=== PATIENT | male | born 1970 | race Caucasian/White ===

== ENCOUNTER 2021-05-03 13:08 | Outpatient (REF) | payer OTHER, SELFPAY ==
[2021-05-03 15:03] LABS: Alanine Aminotransferase 20 U/L (0-40); Albumin Level 4.4 g/dL (3.5-5.0); Alkaline Phosphatase 94 U/L (39-117); Anion Gap 14 (12-20); Aspartate Amino Transferase 18 U/L (5-37); Bilirubin Total 0.6 mg/dL (0.0-1.0); Blood Urea Nitrogen 12 mg/dL (9-16); C Reactive Protein 0.18 mg/dL (< or = 0.50); Calcium 9.9 mg/dL (8.4-10.2); Carbon Dioxide 26 mmol/L (22-29); Chloride 104 mmol/L (96-108); Estimated Glomerular Filt Rate > 60; Glucose Random 103 mg/dL (60-115); Potassium 4.3 mmol/L (3.3-5.1); Sodium 140 mmol/L (135-145); Total Protein 7.4 g/dL (6.5-8.0)
[2021-05-03 15:11] LABS: Rheumatoid Factor < 15.0 IU/mL (<15.0)
[2021-05-03 15:23] LABS: Thyroid Stimulating Hormone 0.85 uIU/mL (0.32-4.0)
[2021-05-04 10:26] LABS: Complement C3 81 mg/dL (82-185)
[2021-05-04 15:22] LABS: PTT (LAC) Screen 36 sec (< OR = 40)
[2021-05-05 03:31] LABS: Thyroglobulin Antibodies <1 IU/mL (< or = 1)
[2021-05-05 10:02] LABS: Anti DNA DS Antibody 13 IU/mL; Antibody to SS-A Antigen <1.0 NEG AI (<1.0 NEG); Antibody to SS-B Antigen <1.0 NEG AI (<1.0 NEG); SM/Ribonucleoprotein Ab <1.0 NEG AI (<1.0 NEG); Smith Protein <1.0 NEG AI (<1.0 NEG); Thyroid Peroxidase Antibodies 1 IU/mL (<9)
== END 2021-05-03 13:09 | disposition home or self-care (01) ==
LOC: HO.LAB 13:08
PROVIDERS: PCP Internal Medicine; Visit Provider Student in an Organized Health Care Education/Training Program
DX: R76.8 Other specified abnormal immunological findings in serum (principal)
CPT/HCPCS: 36415; 80053; 84443; 85597; 85613; 85730; 86140; 86160; 86225; 86235; 86376; 86431; 86800; 99202

== ENCOUNTER 2021-05-23 11:45 | Outpatient (REF) | payer OTHER, SELFPAY ==
[2021-05-23 12:53] LABS: MANUAL DIFF FLAG NO
[2021-05-23 13:00] LABS: Basophils Absolute Auto 0.1 X10*3/uL (0.0-0.2); Basophils Percent Auto 0.8 % (0-2); Eosinophils Absolute Auto 0.1 X10*3/uL (0.0-0.4); Eosinophils Percent Auto 1.4 % (0-4); Hematocrit 44.9 % (42-52); Hemoglobin 14.9 g/dl (14.0-18.0); Imm Gran Abs Auto 0.01 X10*3/uL (0.00-0.03); Imm Gran Pct Auto 0.2 % (0.0-0.4); Lymphocytes Absolute Auto 2.5 X10*3/uL (1.2-4.9); Lymphocytes Percent Auto 37.8 % (20-40); Mean Corpuscular HGB Conc 33.2 g/dl (31.0-36.0); Mean Corpuscular Hemoglobin 29.6 pg (27.0-33.0); Mean Corpuscular Volume 89.1 fL (80-98); Mean Platelet Volume 10.9 fL (9.4-12.4); Monocytes Absolute Auto 0.6 X10*3/uL (0.1-1.2); Monocytes Percent Auto 8.8 % (2-11); Neutrophils Absolute Auto 3.4 X10*3/uL (2.0-8.3); Platelet Count 211 X10*3/uL (160-400); Red Blood Count 5.04 X10*6/uL (4.60-5.80); Red Cell Distribution Width 12.7 % (11.0-16.0); White Blood Count 6.6 X10*3/uL (4.8-10.8)
[2021-05-23 13:05] LABS: Glucose Urine UA NEG (NEG); Leukocyte Esterase Urine NEG (NEG); Nitrite Urine NEG (NEG); Specific Gravity - Urine 1.015 (1.005-1.025); Urine Blood NEG (NEG); Urine Ketones NEG (NEG); Urine Protein NEG (NEG-TRACE)
[2021-05-23 13:09] LABS: Appearance Urine CLEAR; Color Urine YELLOW
[2021-05-23 13:51] LABS: Erythrocyte Sedimentation Rate 2 MM/HR (0-15)
[2021-05-23 13:55] LABS: Amorphous Sediment Urine TRACE /LPF; RBC Urine 0 /HPF (0); WBC Urine 0 /HPF (0-4)
[2021-05-26 13:11] LABS: Anti Nuclear Antibody Screen NEGATIVE (NEGATIVE)
[2021-05-27 17:27] LABS: Cyclic Citrullinated Peptide <16 UNITS
== END 2021-05-23 11:46 | disposition home or self-care (01) ==
LOC: HO.LAB 11:45
PROVIDERS: PCP Internal Medicine; Visit Provider Student in an Organized Health Care Education/Training Program
DX: R76.8 Other specified abnormal immunological findings in serum (principal)
CPT/HCPCS: 36415; 81001; 85025; 85652; 86038; 86039; 86200

== ENCOUNTER → 2021-05-26 12:23 | Outpatient (BNVA) | payer OTHER, SELFPAY | PROVIDERS: PCP Internal Medicine; Visit Provider Student in an Organized Health Care Education/Training Program | DX: R76.8 Other specified abnormal immunological findings in serum (principal) | CPT/HCPCS: 99212 ==

== ENCOUNTER 2021-08-28 13:07 | Emergency (ER) | payer OTHER, SELFPAY | END 2021-08-28 19:56 | disposition left against medical advice (07) | PROVIDERS: Emergency Provider Emergency Medicine; PCP Internal Medicine | DX: J00 Acute nasopharyngitis [common cold] (principal) ==

== ENCOUNTER 2021-09-30 16:33 | Emergency (ER) | payer OTHER, SELFPAY ==
[2021-09-30 16:56] VITALS: BP 142/94; PULSE 98; RESP 18; TEMP 36.8; O2SAT 99; BMI 29.9
--- NOTE | 2021-09-30 18:39 | ED.GENADULT ---
HPI - General Adult General Chief complaint: General Medical Stated complaint: chest pressure Time Seen by Provider: 09/30/21 18:39 Source: patient Mode of arrival: ambulatory Limitations: no limitations History of Present Illness HPI narrative: Patient not vaccinated against COVID feel headache body aches slight cough for last 2 3 days patient was tested positive today for COVID patient is saturating 99% at room air Related Data Home Medications Medication Instructions Recorded Confirmed losartan 50 mg tablet 50 mg PO DAILY 07/20/20 05/26/21 mirtazapine 15 mg tablet 15 mg PO BEDTIME 07/20/20 05/26/21 metformin 500 mg tablet 1 tab PO BID 08/22/20 05/26/21 Allergies Allergy/AdvReac Type Severity Reaction Status Date / Time No Known Allergies [NKA] Allergy Mild NOT Verified 09/30/21 18:31 APPLICABLE Review of Systems Review of Systems: Yes all other systems are reviewed and are negative [facility] Past Medical History Medical History Anxiety Depression Diabetes HTN (hypertension) Surgical History Lipoma of neck Family History Family History Father No problems noted. Mother No problems noted. Social History Social History Household Members: Family Alcohol intake: former Patient Tobacco Use Status: Former Tobacco user Advance Directives: No Advance Directives Information Provided: No Physical Exam Vital Signs: Vital Signs: Last Vital Signs Temp 98.3 F 09/30/21 16:56 Pulse 98 09/30/21 16:56 Resp 18 09/30/21 16:56 BP 142/94 H 09/30/21 16:56 Pulse Ox 99 09/30/21 16:56 BMI result Body Mass Index 29.9 Appearance: Alert. Oriented X3. No acute distress. ENT: Pharynx normal. Oral Mucosa moist Neck: Normal inspection. Neck supple. CVS: Normal heart rate and rhythm. Pulses normal. Respiratory: No respiratory distress. Equal air entry bilateral, no wheezing/rales/rhonchi Abdomen: Soft and nontender. Skin: Skin warm and dry. Normal skin color. Normal skin turgor. Extremities: No lower extremity edema. Neuro: Oriented X 3. Medical Decision Making MDM Narrative Medical decision making narrative: Patient COVID positive saturating 99% at room air advised social isolation follow-up with PCP or report to ER if increased shortness ofbreath Lab Data Lab results reviewed: Yes I reviewed the patient's lab results. Labs: Lab Results 09/30/21 Range/Units 18:33 COVID-19 (SUSAN) Positive A (Negative) COVID-19 Clin Com See Note Discharge Plan Discharge Clinical Impression: COVID-19 Patient Disposition: Home, Self-Care Instructions: COVID-19 (Coronavirus Disease 2019) (ED) Additional Instructions: Keep social distancing [id number] for next 1 week until completely get better Report to the ER if increased shortness of breath Prescriptions: No Action metformin 500 mg tablet 1 tab PO BID RF: 0 losartan 50 mg tablet 50 mg PO DAILY RF: 0 mirtazapine 15 mg tablet 15 mg PO BEDTIME RF: 0 Print Language: Iraqi
[2021-09-30 19:15] LABS: COVID-19 Test Positive (Negative)
== END 2021-09-30 19:39 | disposition home or self-care (01) ==
PROVIDERS: Emergency Provider Internal Medicine; PCP Internal Medicine
DX: U07.1 COVID-19 (principal); R51.9 Headache, unspecified
CPT/HCPCS: 36415; 87635; 99283

== ENCOUNTER → 2021-12-06 12:46 | Outpatient (BNVA) | payer OTHER, SELFPAY | PROVIDERS: PCP Internal Medicine; Referring Provider Internal Medicine; Visit Provider Nurse Practitioner Family | DX: Z12.11 Encounter for screening for malignant neoplasm of colon (principal) | CPT/HCPCS: 99202 ==

== ENCOUNTER 2022-04-20 08:21 | Day surgery (SDC) | payer OTHER, SELFPAY ==
--- NOTE | 2022-04-19 10:04 | HO.ANESPROP2 ---
Documented by User: Mildred Boykin NP 04/19/22 10:04 HPI - Anesthesia Eval Consult details Narrative: 51yo M for Colonoscopy PMFSH Active Problems Active Problems: All Active Problems (Updated 09/30/21 @ 19:27 by Vince Lubin MD) COVID-19 (Acute) SANTOSH positive (Acute) Screening for colon cancer (Acute) Past Medical History Medical History Anxiety Depression Diabetes HTN (hypertension) Family History Family History Father No problems noted. Mother No problems noted. Surgical History Surgical History Lipoma of neck Social History Social History Household Members: Family Alcohol intake: former Patient Tobacco Use Status: Former Tobacco user Use of substances other than those prescribed or required for medical reasons: No Are you DNR?: No Advance Directives: No Advance Directives Information Provided: Yes Meds Allergies Allergy/AdvReac Type Severity Reaction Status Date / Time No Known Allergies [NKA] Allergy Mild NOT Verified 04/17/22 09:51 APPLICABLE Home Medications Medication Instructions Recorded Confirmed Last Taken Type losartan 50 mg tablet 50 mg PO DAILY 07/20/20 04/17/22 Unknown History mirtazapine 15 mg tablet 15 mg PO BEDTIME 07/20/20 04/17/22 Unknown History metformin 500 mg tablet 1 tab PO BID 08/22/20 04/17/22 Unknown History carbamide peroxide 6.5 % ear drops 5 drp otic (ears) DAILY 12/06/21 04/17/22 Unknown History (Ear Drops (carbamide peroxide)) fluticasone propionate 50 1 spray intranasal DAILY 12/06/21 04/17/22 Unknown History mcg/actuation nasal spray,suspension lancets 28 gauge (FreeStyle #100 ea 12/06/21 Unknown History Lancets) loratadine 10 mg tablet 10 mg PO DAILY 12/06/21 04/17/22 Unknown History montelukast 10 mg tablet 10 mg PO QPM 12/06/21 04/17/22 Unknown History Exam Exam Date and Time: April 19, 2022 1004 Assessment and Plan Assessment Anesthesia Assessment: Chart Reviewed Documented by User: Nataly Eldridge MD 04/20/22 11:06 PMFSH Past Medical History Medical History Anxiety Depression Diabetes HTN (hypertension) Family History Family History Father No problems noted. Mother No problems noted. Surgical History Surgical History Lipoma of neck History of Problems with Anesthesia: No Social History Social History Household Members: Family Alcohol intake: former Patient Tobacco Use Status: Former Tobacco user Use of substances other than those prescribed or required for medical reasons: No Are you DNR?: No Advance Directives: No Advance Directives Information Provided: Yes Meds Allergies Allergy/AdvReac Type Severity Reaction Status Date / Time No Known Allergies [NKA] Allergy Mild NOT Verified 04/17/22 09:51 APPLICABLE Home Medications Medication Instructions Recorded Confirmed Last Taken Type losartan 50 mg tablet 50 mg PO DAILY 07/20/20 04/17/22 Unknown History mirtazapine 15 mg tablet 15 mg PO BEDTIME 07/20/20 04/17/22 Unknown History metformin 500 mg tablet 1 tab PO BID 08/22/20 04/17/22 Unknown History carbamide peroxide 6.5 % ear drops 5 drp otic (ears) DAILY 12/06/21 04/17/22 Unknown History (Ear Drops (carbamide peroxide)) fluticasone propionate 50 1 spray intranasal DAILY 12/06/21 04/17/22 Unknown History mcg/actuation nasal spray,suspension lancets 28 gauge (FreeStyle #100 ea 12/06/21 Unknown History Lancets) loratadine 10 mg tablet 10 mg PO DAILY 12/06/21 04/17/22 Unknown History montelukast 10 mg tablet 10 mg PO QPM 12/06/21 04/17/22 Unknown History Exam Airway Mallampati Class: II TM Dist: >3cm Neck ROM: Full Loose/Missing/Broken Teeth: No Heart: RRR Lungs: CTA Assessment and Plan Final Anesthetic Review History of Problems with Anesthesia: No NPO: Yes ASA Class: II Final Preanesthetic Review: Meds/Allgs Chart Reviewed, Consent Obtained/Reviewed and Anes Risks/Benef Reviewed Patient Risk: Low Procedure Risk: Low Anesthetic Plan Anesthetic Plan: MAC: Disposition: Standard PACU
[2022-04-20 09:10] VITALS: BMI 29.8
[2022-04-20 09:23] VITALS: BP 119/89; PULSE 78; RESP 18; TEMP 36.6; O2SAT 97
[2022-04-20 09:23] LABS: Glucose, Whole Blood 119 mg/dL (60-115)
[2022-04-20] MEDS: Lactated Ringers 1,000 ML 100 ML IVCONT (09:34)
--- NOTE | 2022-04-20 09:51 | P.BOP_ITS ---
Brief Operative Note Date of Service: 04/20/22 Pre-op diagnosis: Colon cancer screening Post-op diagnosis: other (Colon polyps, fair prep) Procedure: COLONOSCOPY TILL CECUM WITH BIOPSIES AND SUBMUCOSAL INJECTION Consent: Indications for the procedure and potential complications of bleeding, perforation, reaction to medications and missed diagnosis were discussed with the patient and informed consent was obtained. Instrument: Olympus PCF H 190 L variable stiffness pediatric colonoscope Monitoring: Vital signs and clinical assessment, intermittent blood pressure monitoring, continuous EKG monitoring, Pulse oximetry and Carbon Dioxide monitoring were done throughout the procedure. Colon withdrawl time was 30 minutes. Procedure: The patient was placed in the left lateral decubitis position and pre-procedure medications were administered. After a digital rectal examination of the ano-rectum, the video colonoscope was inserted into the rectum and advanced through the colon to the cecum. The colonoscope was slowly withdrawn in a retrograde panoramic fashion and the colon mucosa was carefully examined including a retroflexed view of the rectum. Findings and interventions are described below. Procedure Difficulty: Colon was long and there was some loop formation No maneuvers were required Findings: Terminal Ileum: Not evaluated Cecum: Normal Ascending Colon: A ? 10-12 mm flat polyp in the proximal AC just distal to ICV raised with 5 c cof Orise solution and polyp could not be snared. Polyp was removed piecemeal with multiple bites of biopsy forcep. Transverse Colon: Normal Descending Colon: Normal Sigmoid Colon: Moderate diverticulosis Rectum: Normal Ano-rectum: Moderate internal hemorrhoids Colon preparation: Fair despite copious irrigation Impression and Post Procedure Diagnosis: Colonoscopy Findings: A ? 10-12 mm flat polyp in the proximal AC just distal to ICV raised with 5 c cof Orise solution and polyp could not be snared. Biopsies obtained. Moderate diverticulosis seen in the sigmoid colon Moderate hemorrhoids on retroflexed exam. Plan: Await pathology results Patient has an appointment on 05/10/22 in the [facility] with Rubi An FNP- [place]. Repeat Colonoscopy in 1 year if polyps are adenomatous, to check polypectomy site in the asceding colon and due to fair prep (needs dulcolax daily starting 5 days before the procedure and an adult colonoscope for future colonscopies). Above findings were reviewed with the patient and colon polyps and diverticulosis handouts were given in the discharge area Surgeon: Deandre Hanna MD Anesthesia: MAC (Dr Eldridge) Was an Skeins Yarn Examiner used for this Procedure?: Yes Skeins Yarn Examiner: Wanda Barajas Estimated blood loss (mL): 0 Pathology: other (A: ascending colon polyp biopsy) Condition: stable Disposition: PACU
--- NOTE | 2022-04-20 09:51 | MHC.SHP ---
Pre-Procedural Eval Section A Date of Service: 04/20/22 The patient is an INPATIENT: No The History & Physical has been completed within 30 days and I have reviewed it.: No Section B Chief Complaint: screening Details of Present Illness: Colon cancer screening Relevant Family History (Specify if Yes): No Relevant Social History: Tobacco Use (Former smoker) Present Medications: see Short Stay Collaborative assessment Medical History: Significant History (Anxiety Depression Diabetes HTN (hypertension)) History of Previous Operations: Relevant previous surgery/procedure and date(s) (Lipoma of neck) Allergies: Allergies Allergy/AdvReac Type Severity Reaction Status Date / Time No Known Allergies [NKA] Allergy Mild NOT Verified 04/17/22 09:51 APPLICABLE Review of Systems Sugical H&P ROS: Negative: Constitution, Cardiovascular, Respiratory and Gastrointestinal Exam Surgical H&P Exam: Normal: Heart, Normal: Lungs, Normal: Extremities and Normal: Abdomen Plan Diagnosis/Plan: Unchanged I have reviewed the history and physical and performed a pertinent physical examination on my patient. No changes have occurred unless specified.
[2022-04-20 11:41] VITALS: BP 122/89; PULSE 71; RESP 20; TEMP 36.4; O2SAT 99
[2022-04-20 11:56] VITALS: BP 117/79; PULSE 76; RESP 20; TEMP 36.5; O2SAT 96
--- NOTE | 2022-04-23 14:59 | P.OP_ITS ---
Operative Note Operative Note Date of Service: 04/20/22 Narrative: Pre-op diagnosis: Colon cancer screening Post-op diagnosis:?other (Colon polyps, fair prep) Procedure: COLONOSCOPY TILL CECUM WITH BIOPSIES AND SUBMUCOSAL INJECTION Consent: Indications for the procedure and potential complications of bleeding, perforation, reaction to medications and missed diagnosis were discussed with the patient and informed consent was obtained. Instrument: Olympus PCF H 190 L variable stiffness pediatric colonoscope Monitoring: Vital signs and clinical assessment, intermittent blood pressure monitoring, continuous EKG monitoring, Pulse oximetry and Carbon Dioxide monitoring were done throughout the procedure. Colon withdrawl time was 30 minutes. Procedure: The patient was placed in the left lateral decubitis position and pre-procedure medications were administered. After a digital rectal examination of the ano-rectum, the video colonoscope was inserted into the rectum and advanced through the colon to the cecum. The colonoscope was slowly withdrawn in a retrograde panoramic fashion and the colon mucosa was carefully examined including a retroflexed view of the rectum. Findings and interventions are described below. Procedure Difficulty: Colon was long and there was some loop formation No maneuvers were required Findings: Terminal Ileum: Not evaluated Cecum:? Normal Ascending Colon:? A ? 10-12 mm flat polyp in the proximal AC just distal to ICV raised with 5 c cof Orise solution and polyp could not be snared.? Polyp was removed piecemeal with multiple bites of biopsy forcep. Transverse Colon:? Normal Descending Colon:? Normal Sigmoid Colon:? Moderate diverticulosis Rectum:? Normal Ano-rectum:? Moderate internal hemorrhoids Colon preparation: Fair despite copious irrigation Impression and Post Procedure Diagnosis: Colonoscopy Findings: A ? 10-12 mm flat polyp in the proximal AC just distal to ICV raised with 5 c cof Orise solution and polyp could not be snared.? Biopsies obtained. Moderate diverticulosis seen in the sigmoid colon Moderate hemorrhoids on retroflexed exam. Plan: Await pathology results Patient has an appointment on 05/10/22 in the GI Clinic with Rubi An FNP- [place]. Repeat Colonoscopy in 1 year if polyps are adenomatous, to check polypectomy site in the asceding colon and due to fair prep (needs dulcolax daily starting 5 days before the procedure and an adult colonoscope for future colonscopies). Colon polyps and diverticulosis handouts were given in the discharge area Surgeon: Deandre Hanna MD Anesthesia:?MAC (Dr Eldridge) Was an Thread Milling Machine Set Up Operator used for this Procedure?:?Yes Thread Milling Machine Set Up Operator:?Wanda Barajas Estimated blood loss (mL):?0 Pathology:?other (A: ascending colon polyp biopsy) Condition:?stable Disposition:?PACU
== END 2022-04-20 12:54 | disposition home or self-care (01) ==
PROVIDERS: PCP Internal Medicine; Visit Provider Internal Medicine Gastroenterology
PROC: 0DJD8ZZ Inspection of Lower Intestinal Tract, Via Natural or Artificial Opening Endoscopic (ICD-10-PCS; CPT 45378; principal; 2022-04-20 10:20)
DX: Z12.11 Encounter for screening for malignant neoplasm of colon (principal); K63.5 Polyp of colon; K57.30 Diverticulosis of large intestine without perforation or abscess without bleeding; K64.8 Other hemorrhoids; I10 Essential (primary) hypertension; E78.5 Hyperlipidemia, unspecified; F41.8 Other specified anxiety disorders; E11.9 Type 2 diabetes mellitus without complications; Z79.84 Long term (current) use of oral hypoglycemic drugs; Z79.899 Other long term (current) drug therapy; Z87.891 Personal history of nicotine dependence
CPT/HCPCS: 45380; 45381; 82947; 88305

== ENCOUNTER 2023-03-06 11:11 | Outpatient (REF) | payer OTHER, SELFPAY ==
--- NOTE | ~2023-03-06 | XR_ITS ---
EXAMINATION: XR CHEST CLINICAL INFORMATION: Cough COMPARISON: August 07, 2019 TECHNIQUE: 2 views of the chest were obtained. FINDINGS: No significant abnormality is noted involving the heart, lungs, mediastinum, bony thorax or soft tissues. XR/XR chest 2V IMPRESSION: No acute disease.
== END 2023-03-06 11:12 | disposition home or self-care (01) ==
LOC: HO.HHCX 11:11
PROVIDERS: Visit Provider Emergency Medicine
DX: R05.9 Cough, unspecified (principal)
CPT/HCPCS: 71046

== ENCOUNTER 2025-08-06 10:30 | Outpatient (REF) | payer OTHER, SELFPAY ==
[2025-08-06 12:12] LABS: Alanine Aminotransferase 39 U/L (0-40); Albumin Level 4.7 g/dL (3.5-5.0); Alkaline Phosphatase 116 U/L (39-117); Anion Gap 12 (12-20); Aspartate Amino Transferase 26 U/L (5-37); Blood Urea Nitrogen 22 mg/dL (9-16); Calcium 9.3 mg/dL (8.4-10.2); Carbon Dioxide 27 mmol/L (22-29); Chloride 108 mmol/L (96-108); Cholesterol 176 mg/dL (<200); Estimated Glomerular Filt Rate > 60; HDL Cholesterol 45 mg/dL (>40); Potassium 5.0 mmol/L (3.3-5.1); Sodium 142 mmol/L (135-145); Total Protein 7.7 g/dL (6.5-8.0); Triglycerides 102 mg/dL (<150)
[2025-08-06 13:37] LABS: Microalbum/Creatinine Ratio Ur 10.8 ug/mg cr (<30)
== END 2025-08-06 10:31 | disposition home or self-care (01) ==
LOC: HO.HHCL 10:30
PROVIDERS: PCP Internal Medicine; Visit Provider Internal Medicine
DX: Z00.00 Encounter for general adult medical examination without abnormal findings (principal); I10 Essential (primary) hypertension; E11.9 Type 2 diabetes mellitus without complications; Z12.5 Encounter for screening for malignant neoplasm of prostate
CPT/HCPCS: 36415; 80053; 80061; 82043; 82570; 84153